=== PATIENT | female | born 1995 | race Two or more races ===

== ENCOUNTER 2019-03-25 16:51 | Emergency (ER) | payer SELFPAY ==
[~2019-03-25] VITALS: Ht 157.5 cm; Wt 68.0 kg
[~2019-03-25 16:51] MED LIST: CETI10TA22 PO; FAMO20TA5 PO; HYDR-2765 PO; HYDR-3164 PO; NAPR220T70 PO; ONDA4TAB12 PO; PRED50TA PO
[2019-03-25 17:32] VITALS: BP 135/78
[2019-03-25] MEDS ORDERED: PRED20TA PO (18:28)
--- NOTE | 2019-03-25 18:29 | PHYS DOC ---
Past Medical History Past Medical History: No Pertinent History (AIMEE DUNN APRN) Past Surgical History: No Surgical History (AIMEE DUNN APRN) Alcohol Use: None Drug Use: None (AIMEE DUNN APRN) Adult General Chief Complaint Chief Complaint: SKIN PROBLEM HPI HPI Patient is a 23 year old female who presents to the ER with complaints of a red, itchy, rash to her face after playing with a dog on Sunday. Pt states that there was small area on her forehead that has spread to her nose and cheek. She denies any fever. drainage, vision changes, sore throat, shortness of breath, ear pain, or cough. She denies any pain at this time. (AIMEE DUNN APRN) Review of Systems Review of Systems Constitutional: Denies fever or chills [] Eyes: Denies change in visual acuity, or eye pain [] HENT: Denies nasal congestion or sore throat [] Respiratory: Denies cough or shortness of breath [] Cardiovascular: No additional information not addressed in HPI [] Integument: see history of present illness Neurologic: Denies headache, focal weakness or sensory changes [] (AIMEE DUNN APRN) Allergies Allergies Allergies Coded Allergies Type Severity Reaction Last Updated Verified No Known Drug Allergies 05/21/14 No (EMANI TAPIA DO) Physical Exam Physical Exam Constitutional: Well developed, well nourished, no acute distress, non-toxic appearance. [] HENT: Normocephalic, atraumatic, bilateral external ears normal, nose normal. [] Eyes: PERRLA, conjunctiva normal, no discharge. [] Cardiovascular:Heart rate regular rhythm, no murmur [] Lungs & Thorax: Bilateral breath sounds clear to auscultation [] Skin: Warm, dry; scattered erythemic maculopapular rash with some vesicular lesions noted to the left side of face mostly on forehead consistent with contact allergic dermatitis Extremities: No cyanosis, ROM intact, Neurologic: Alert and oriented X 3, no focal deficits noted. [] Psychologic: Affect normal, judgement normal, mood normal. [] (AIMEE DUNN APRN) Current Patient Data Vital Signs Vital Signs Date Time Temp Pulse Resp B/P (MAP) Pulse Ox O2 Delivery O2 Flow Rate FiO2 03/25/19 17:32 98.0 61 18 135/78 (97) 99 Room Air 98.0 (EMANI TAPIA DO) EKG EKG [] (AIMEE DUNN APRN) Radiology/Procedures Radiology/Procedures [] (AIMEE DUNN APRN) Course & Med Decision Making Course & Med Decision Making Pertinent Labs and Imaging studies reviewed. (See chart for details) [] (AIMEE DUNN APRN) Dragon Disclaimer Dragon Disclaimer This electronic medical record was generated, in whole or in part, using a voice recognition dictation system. (AIMEE DUNN APRN) Departure Departure Impression: Primary Impression: Contact dermatitis Disposition: 01 HOME, SELF-CARE Referrals: NO PCP (PCP) Patient Instructions: Poison Kylee, [id number] Additional Instructions: Fill the prescription and use as directed. Follow up with your primary care doctor if symptoms persist, return to the ER if symptoms worsen. Scripts Prednisone (PREDNISONE) 20 Mg Tablet 1 TAB PO UD for 12 Days, #15 TAB take 2 tabs days 1, 2, 3 then take 1.5 tabs days 4, 5, 6 then take 1 tab days 7, 8, 9, then take 0.5 tab days 10, 11, 12 Prov: AIMEE DUNN APRN 03/25/19 Attending Signature Attending Signature I have reviewed the PA/[employer]AR [employer] TECHNICIAN's note and plan of care. I was available for consultation as needed during the patient's visit in the emergency department. I agree with the clinical impression, plan, and disposition. (EMANI TAPIA DO) Problem Qualifiers Primary Impression: Contact dermatitis Contact dermatitis type: allergic Contact dermatitis trigger: non-food plants Qualified Codes: L23.7 - Allergic contact dermatitis due to plants, except food AIMEE DUNN APRN Mar 25, 2019 18:29 EMANI TAPIA DO Mar 25, 2019 19:52
== END 2019-03-25 18:44 | disposition home or self-care (01) ==
LOC: ER 16:51
DX: L23.7 Allergic contact dermatitis due to plants, except food (principal)
CPT/HCPCS: 99283